=== PATIENT | male | born 1950 | race Caucasian/White ===

== ENCOUNTER → 2024-09-09 10:34 | Outpatient (REF) | payer MEDICARE, OTHER, SELFPAY ==
[2024-09-09 11:07] LABS: % Basophils 0.4 % (0-2); % Eosinophils 4.3 % (0-6); % Immature Granulocytes 0.1 % (0-0.5); % Lymphocytes 44.6 % (20.5-51.1); % Monocytes 10.6 % (1.7-9.3); Absolute Eosinophils 0.3 10^3/uL (0-0.7); Absolute Monocytes 0.7 10^3/uL (0.1-0.6); Absolute Neutrophils 2.7 10^3/uL (1.4-6.5); Hematocrit 42.6 % (39.0-52.0); Mean Corp Hgb Conc. 35.2 g/dL (33.0-37.0); Mean Corpuscular Hgb 32.9 pg (27.0-31.0); Mean Corpuscular Volume 93.4 fL (80.0-94.0); Nucleated Red Blood Cells % 0 % (-); Platelet Count 189 10^3/uL (130-400); Red Blood Cell Count 4.56 10^6/uL (4.70-6.10); Red Cell Dist. Width 13.2 % (11.5-14.5); White Blood Cell Count 6.8 10^3/uL (4.8-10.8)
[2024-09-09 12:18] LABS: ALT (SGPT) 26 U/L (0-50); AST (SGOT) 33 U/L (17-59); Albumin 4.6 g/dl (3.5-5.0); Alkaline Phosphatase 86 U/L (38-126); Blood Urea Nitrogen 23 mg/dl (9-20); Calcium 9.8 mg/dl (8.4-10.2); Carbon Dioxide 27 mmol/L (22-30); Chloride 103 mmol/L (98-107); Glucose 97 mg/dl (70-99); Potassium 4.9 mmol/L (3.5-5.1); Sodium 142 mmol/L (135-145); Total Bilirubin 0.5 mg/dl (0.2-1.3); Total Protein 7.5 g/dl (6.3-8.2); eGFR > 60.00
[2024-09-09 12:54] LABS: C-Reactive Protein < 5.00 mg/L (0.0-10.00)
== END ==
LOC: REG 10:34
PROVIDERS: ATTENDING PHYSICIAN Internal Medicine Rheumatology; FAMILY PHYSICIAN Family Medicine
DX: M06.00 Rheumatoid arthritis without rheumatoid factor, unspecified site (principal); Z51.81 Encounter for therapeutic drug level monitoring
CPT/HCPCS: 36415; 80053; 85025; 86140

== ENCOUNTER 2024-10-08 07:49 | Emergency (ER) | payer MEDICARE, OTHER, SELFPAY ==
[2024-10-08] VITALS (12 sets, daily range): BP systolic 131–168; BP diastolic 53–76; PULSE 58–67; BMI 35.8
--- NOTE | 2024-10-08 08:15 | ED.GENMED ---
History of Present Illness
General
Chief Complaint: Chest Pain
Source: patient
Time Seen by Provider: 10/08/24 08:06
History of Present Illness
History of Present Illness:
74yoM with a history of hypertension, obesity, and GERD presenting with his for evaluation of back pain. Patient woke up in the middle of the night around 3:20am to use the bathroom. He started to notice that his heart was racing and his heart
rate felt irregular. He then developed a sharp pain in his right upper back/scapular region. This was followed by paresthesias in his left arm. He felt clammy at that time and nauseous. His symptoms have improved but he continues to feel heart
fluttering and a mild discomfort in his back. He has minor chest discomfort but denies any overt pain. No syncope. He denies any history of CAD. He was seen by a sandwich artist about 4 years ago for preoperative clearance. He was told he had a 'leaky
valve' but that surgery was not needed. He does not follow with cardiology currently.
Past History
Past History
ED Past Medical History: Other (Arthritis); Negative IDDM
ED Past Surgical History: Orthopedic; Negative Cardiac
Social History
Tobacco: Non-smoker
Alcohol: None
Drug: None
Personal:
Living: with family
Employment: Retired
Family History
Family History: Other (Noncontributory)
Phy Exam
General Physical Exam
General Presentation: well appearing and no apparent distress
General age: appears stated age
General Skin: warm and dry
General Habitus: normal
General Mental: alert
ENT Exam
ENT Exam: normocephalic
Cardiovascular Exam
Cardiovascular Exam: regular rate/rhythm, no edema, normal peripheral pulses (2+ radial and DP pulses bilaterally) and systolic murmur
Pulmonary Exam
Pulmonary Exam: lungs clear, no respiratory distress, no rales, no crackles, no rhonchi and no wheezing
Neurological Exam
Neurological Exam: alert
Alexis Coma Scale
Eye Opening: Spontaneous
Verbal Response: Oriented
Motor Response: Obeys Commands
GCS Total Score: 15
Musculoskeletal Exam
Musculoskeletal Exam: other (No reproducible tenderness in back)
Skin Exam
Skin Exam: normal color and warm/dry
Psychiatric Exam
Psychiatric Exam: normal mood/affect
Scores
Heart Score for Chest Pain Patients
STEMI patient?: No
History: Moderately Suspicious
ECG: Nonspecific Repolarization
Age: >/= 65 years
Risk Factors: 1 or 2 Risk Factors
Troponin: </= Normal Limit
Heart Score for Chest Pain Patients: 5
Heart Score Risk: 20.3% MACE over next 6 weeks
Course
Orders/Labs/Results
Orders:
Orders
10/08/24 07:52
EKG [Electrocardiogram (*1)] Urgent
Reason for Study: Chest Pain
10/08/24 07:53
EKG- Treatment ONCE
10/08/24 08:10
Cardiac Monitoring- Treatment ONCE
IV Insert/Care/Rem.- Treatment PRN
O2 Therapy [RESP] Urgent
Titrate/Wean O2 to maintain O2 sat greater than (%): 90
Special Instructions: Maintain sats >/=90%
Pulse Ox/spot Check [RESP] Urgent
Quantity: 1
Special Instructions: ON ROOM AIR
10/08/24 08:14
CT Chest/abd/pelvis Angio W/wo Urgent
Comment:
Reason For Exam: R upper back pain, paresthesias L arm
10/08/24 08:15
Complete Blood Count/With Diff Urgent
Comprehensive Metabolic Panel Urgent
PTT Urgent
Prothrombin Time Urgent
Troponin I Urgent
10/08/24 10:12
EKG- Treatment ONCE
10/08/24 11:07
Troponin I Urgent
10/08/24 11:15
Electrocardiogram (*1) Urgent
Reason for Study: Chest Pain
Abnormal Lab Results
10/08/24
08:15
RBC 4.65 L 10^6/uL
(4.70-6.10)
MCH 31.4 H pg
(27.0-31.0)
Absolute Monos (auto) 0.7 H 10^3/uL
(0.1-0.6)
Monocytes % 12.0 H %
(1.7-9.3)
BUN 23 H mg/dl
(9-20)
Glucose 114 H mg/dl
(70-99)
10/08/24 08:15
10/08/24 08:15
Vital Signs
Initial and Last Documented VS:
Initial Vital Signs
Temp Pulse Resp BP Pulse Ox
97.5 F 66 20 160/76 97
10/08/24 07:50 10/08/24 07:50 10/08/24 07:50 10/08/24 07:50 10/08/24 07:50
Last Documented Vital Signs
Temp Pulse Resp BP Pulse Ox
98 F 61 17 150/64 95
10/08/24 08:00 10/08/24 12:00 10/08/24 12:00 10/08/24 12:00 10/08/24 08:24
MDM/Problems Addressed
Differential Diagnosis Includes:
74yoM here with pain in his R upper back/scapular area. Associated with palpitations and L arm tingling. Started this morning. Symptoms currently improved. He is hypertensive with otherwise normal vital signs. He is well appearing in no distress.
Exam is reassuring. Differential diagnosis includes but is not limited to: arrhythmia, ACS, aortic dissection
Initial ED plan: Check cardiac labs, EKG, and CTA CAP to evaluate for dissection.
*EKG
Interpreted by ED Provider?: Yes
EKG Intrepretation Date: 10/08/24
Heart Rate: 66
Rate: normal
Rhythm: sinus
[place]: normal axis
QRS Pattern: right bundle branch block
Ischemia: no ischemia
*Critical Care Note
Total Time (30-74mins, 75-104mins- exclusive of procedures): Not Applicable
Update Note
Update Note:
EKG shows NSR with a RBBB. No signs of ischemia noted. Troponin WNL. CTA is negative for dissection. Imaging shows a round mass in the anterior mediastinum for which radiology is recommending a repeat CT in 3 months. Patient and were notified
of result and were given a copy of the CT scan report. Patient feeling improved on reassessment. All symptoms have resolved other than intermittent chest fluttering which he has had previously. Delta troponin and EKG are unchanged. No telemetry
events during ED stay. No indication for hospitalization. Advised close f/u with PCP and cardiology. ED return precautions discussed. Patient expressed understanding and is agreeable to plan. He was discharged in stable condition.
ED Attending Note
-
Portions of this chart may have been created with voice recognition software.� Occasional wrong word or��sound alike� substitutions may have occurred due to the inherent limitations of voice recognition software.
Discharge Plan
Departure
Patient Disposition: Home (Routine Discharge)
Date of Disposition: 10/08/24
Time of Disposition: 12:10
Patient with high blood pressure during this ER visit?: Yes
Discharge Problem:
Chest pressure, Mediastinal mass
Instructions: Chest Pain DCA Follow Up
Prescriptions:
No Action
omeprazole magnesium [Prilosec OTC] 20 MG tablet,delayed release (DR/EC)
20 mg PO DAILY
meloxicam [Mobic] 15 mg Tablet
15 mg PO DAILY
sulfasalazine 500 mg tablet,delayed release (DR/EC)
500 mg PO QID
amlodipine 10 mg tablet
10 mg PO DAILY
triamterene-hydrochlorothiazid 37.5-25 mg tablet
1 tab PO DAILY
cyanocobalamin (vitamin B-12) 1,000 mcg Tablet, Sublingual
1,000 mcg SUBLINGUAL DAILY
metoprolol succinate 25 mg tablet extended release 24 hr
50 mg PO HS
Centrum Silver Men [id number] mcg Tablet
1 tab PO DAILY
Prevagen
1 tab PO DAILY
Referrals:
Gilda Zamarripa MD [Family Provider] -
El Zelaya MD [Active] -
Activity Restrictions/Additional Instructions:
Please call today to schedule a follow-up with your family doctor and cardiology. Return to the ER immediately with any new or worsening symptoms.
Your CT today showed a round mass in your chest measuring 2.4cm. You will need to have a repeat CT scan in 3 months to monitor this.
Interventions
Interventions:
*Risk Screen - Suicide Last Done: 10/08/24 07:50
*General Assessment Last Done: 10/08/24 07:50
*Neglect/Abuse Screening Last Done: 10/08/24 12:50
ED- Fall Risk Assessment Last Done: 10/08/24 12:50
*ED COVID-19 Vaccine History Last Done: 10/08/24 07:50
*Nursing Disposition Last Done: 10/08/24 12:50
ED- Cardiac Assessment Last Done: 10/08/24 08:24
Discharge Date and Time
Discharge Date/Time: 10/08/24 12:51
Print Language: BELARUSIAN
[2024-10-08 08:36] LABS: ALT (SGPT) 31 U/L (0-50); AST (SGOT) 36 U/L (17-59); Albumin 4.5 g/dl (3.5-5.0); Alkaline Phosphatase 75 U/L (38-126); Blood Urea Nitrogen 23 mg/dl (9-20); Calcium 9.7 mg/dl (8.4-10.2); Carbon Dioxide 25 mmol/L (22-30); Chloride 105 mmol/L (98-107); Estimated Creatinine Clearance 110 ml/min; Glucose 114 mg/dl (70-99); Potassium 4.1 mmol/L (3.5-5.1); Sodium 143 mmol/L (135-145); Total Bilirubin 0.6 mg/dl (0.2-1.3); Total Protein 7.2 g/dl (6.3-8.2); eGFR > 60.00
[2024-10-08 08:46] LABS: % Basophils 0.8 % (0-2); % Eosinophils 3.7 % (0-6); % Immature Granulocytes 0.2 % (0-0.5); % Lymphocytes 38.6 % (20.5-51.1); % Neutrophils 44.7 % (42.2-75.2); Absolute Basophils 0.1 10^3/uL (0-0.2); Absolute Eosinophils 0.2 10^3/uL (0-0.7); Absolute Lymphocytes 2.3 10^3/uL (1.2-3.4); Absolute Monocytes 0.7 10^3/uL (0.1-0.6); Absolute Neutrophils 2.7 10^3/uL (1.4-6.5); Hemoglobin 14.6 g/dL (13.0-18.0); Mean Corp Hgb Conc. 34.8 g/dL (33.0-37.0); Mean Corpuscular Hgb 31.4 pg (27.0-31.0); Mean Corpuscular Volume 90.3 fL (80.0-94.0); Mean Platelet Volume 9.3 fL (7.4-10.4); Nucleated Red Blood Cells % 0 % (-); Platelet Count 178 10^3/uL (130-400); Red Blood Cell Count 4.65 10^6/uL (4.70-6.10); Red Cell Dist. Width 13.2 % (11.5-14.5)
[2024-10-08 08:48] LABS: Troponin I < 0.012 ng/ml
[2024-10-08 09:25] LABS: INR 0.94; PT 13.1 Sec (11.4-14.6)
[2024-10-08 11:39] LABS: Troponin I < 0.012 ng/ml
== END 2024-10-08 12:51 | disposition home or self-care (01) ==
LOC: EMR 07:49
PROVIDERS: Physician Assistant; EMERGENCY PHYSICIAN Emergency Medicine; FAMILY PHYSICIAN Family Medicine
DX: R07.89 Other chest pain (principal); I10 Essential (primary) hypertension; E66.9 Obesity, unspecified; K21.9 Gastro-esophageal reflux disease without esophagitis; Z85.820 Personal history of malignant melanoma of skin
CPT/HCPCS: 99284; 71275; 74174; 80053; 84484; 85025; 85610; 85730; 93005; Q9967

== ENCOUNTER → 2024-10-15 15:38 | Outpatient (REF) | payer MEDICARE, OTHER, SELFPAY | LOC: RCS 15:38 | PROVIDERS: ATTENDING PHYSICIAN Internal Medicine Interventional Cardiology; FAMILY PHYSICIAN Family Medicine | DX: R07.2 Precordial pain (principal); R06.09 Other forms of dyspnea; R00.2 Palpitations | CPT/HCPCS: 93306 ==

== ENCOUNTER → 2024-10-16 06:36 | Outpatient (REF) | payer MEDICARE, OTHER, SELFPAY ==
[2024-10-16] MEDS: LEXISCAN 0.4 MG IV (09:08)
[2024-10-16] MEDS: FLUSH (NSS) 1 FLUSH IV (09:09)
== END ==
LOC: RCS 06:36
PROVIDERS: ATTENDING PHYSICIAN Internal Medicine Interventional Cardiology; FAMILY PHYSICIAN Family Medicine
DX: R07.2 Precordial pain (principal); R06.09 Other forms of dyspnea; R00.2 Palpitations
CPT/HCPCS: 78452; 93017; A9500; J2785

== ENCOUNTER → 2024-10-20 12:44 | Outpatient (REF) | payer MEDICARE, OTHER, SELFPAY | LOC: RAD 12:44 | PROVIDERS: ATTENDING PHYSICIAN Internal Medicine Interventional Cardiology; FAMILY PHYSICIAN Family Medicine | DX: E78.2 Mixed hyperlipidemia (principal) | CPT/HCPCS: 75571 ==

== ENCOUNTER → 2025-01-13 12:58 | Outpatient (REF) | payer MEDICARE, OTHER, SELFPAY | LOC: RAD 12:58 | PROVIDERS: ATTENDING PHYSICIAN Family Medicine; REFERRING PHYSICIAN Internal Medicine Rheumatology | DX: E32.8 Other diseases of thymus (principal) | CPT/HCPCS: 71260; Q9967 ==